=== PATIENT | female | born 1980 | race Caucasian/White ===

== ENCOUNTER 2016-07-03 11:19 | Emergency (ER) | payer OTHER | END 2016-07-03 13:18 | disposition left against medical advice (07) | LOC: UCCORT 11:19 | DX: R05 Cough (principal); Z53.29 Procedure and treatment not carried out because of patient's decision for other reasons ==

== ENCOUNTER 2016-07-04 10:51 | Emergency (ER) | payer OTHER ==
[2016-07-04 13:42] VITALS: BP 122/76
--- NOTE | 2016-07-17 17:28 | UC ---
Respiratory Complaint HPI - HPI Summary HPI Summary: Pt c/o generalized malaise, fatigue, productive cough, nasal congestion and increase in urination X 1 week. - History of Current Complaint Chief Complaint: UCGeneralIllness Stated Complaint: COUGH,SORE THROAT,CONGESTION Time Seen by Provider: 07/04/16 14:03 Hx Obtained From: Patient Hx Last Menstrual Period: 06/28/16 ?: No Onset/Duration: Gradual Onset, Lasting Days Timing: Constant Severity Initially: Mild Severity Currently: Mild Pain Intensity: 2 Pain Scale Used: 0-10 Numeric Character: Cough: Productive Aggravating Factors: Deep Breaths, Recumbent Position Associated Signs And Symptoms: Positive: Chills, URI, Nasal Congestion - Risk Factors Pulmonary Embolism Risk Factors: Negative - Allergies/Home Medications Allergies/Adverse Reactions: Allergies Allergy/AdvReac Type Severity Reaction Status Date / Time No Known Allergies Allergy Verified 07/04/16 13:38 PMH/Surg Hx/FS Hx/Imm Hx Previously Healthy: Yes Endocrine History Of: Denies: Diabetes Cardiovascular History Of: Denies: Hypertension, Pacemaker/ICD GI/ History Of: Denies: Renal Disease - Surgical History Surgical History: None Surgery Procedure, Year, and Place: Right Hip Periasatabularosteotomy, 2015, [place] - Family History Known Family History: Positive: Cardiac Disease - Social History Alcohol Use: None Substance Use Type: None Smoking Status (MU): Never Smoked Tobacco Type: Cigarettes - Immunization History Most Recent Influenza Vaccination: Not the Season Review of Systems Constitutional: Fever, Chills, Fatigue Skin: Negative Eyes: Negative ENT: Sore Throat, Ear Ache Respiratory: Cough Cardiovascular: Negative Gastrointestinal: Negative Genitourinary: Frequency Motor: Negative Neurovascular: Negative Musculoskeletal: Myalgia Neurological: Negative Psychological: Negative All Other Systems Reviewed And Are Negative: Yes Physical Exam Triage Information Reviewed: Yes Appearance: Ill-Appearing Vital Signs: Initial Vital Signs Temp 98.6 F 07/04/16 13:36 Pulse 70 07/04/16 13:36 Resp 16 07/04/16 13:36 BP 122/76 07/04/16 13:36 Pulse Ox 100 07/04/16 13:36 Vital Signs Reviewed: Yes ENT Exam: Other ENT: Positive: Nasal congestion Neck exam: Normal Respiratory Exam: Normal Cardiovascular Exam: Normal Musculoskeletal Exam: Normal Neurological Exam: Normal Psychological Exam: Normal Skin Exam: Normal UC Diagnostic Evaluation - Laboratory O2 Sat by Pulse Oximetry: 100 Respiratory Course/Dx - Differential Dx/Diagnosis Differential Diagnosis/HQI/PQRI: Bronchitis, Influenza, Sinusitis Provider Diagnoses: bronchitis Discharge - Discharge Plan Condition: Stable Disposition: HOME Prescriptions: Azithromycin TAB* [Zithromax TAB (Z-GRAHAM) 250 mg #6 tabs] 2 tab PO .TODAY, THEN 1 DAILY #1 graham Patient Education Materials: Acute Bronchitis (ED) Referrals: Miya Howe MD [Primary Care Provider] -
== END 2016-07-04 14:22 | disposition home or self-care (01) ==
LOC: UCCORT 10:51
DX: J40 Bronchitis, not specified as acute or chronic (principal)
CPT/HCPCS: 99212; G0463

== ENCOUNTER 2016-09-03 10:26 | Emergency (ER) | payer OTHER ==
[2016-09-03 10:42] VITALS: BP 140/92
--- NOTE | 2016-09-03 11:28 | UC ---
Complaint Female HPI - HPI Summary HPI Summary: She went to [facility]/18 for routine exam and mentioned vaginal discharge. She has been on clindmycin and flagyl. she has mild pelvic cramping intermittently and urinary frequency without hesitancy, burning or urgency . no flank pain, vomiting or fever. No prior STD and monogamous for 3 years. - History Of Current Complaint Chief Complaint: UCGU Stated Complaint: URINARY COMPLAINT Time Seen by Provider: 09/03/16 11:02 Hx Last Menstrual Period: 2 weeks ago ?: No Onset/Duration: Gradual Onset, Lasting Days Timing: Intermittent Severity Initially: Mild Severity Currently: Mild Character: Cramping Aggravating Factor(s): Nothing Associated Signs And Symptoms: Negative: Fever, Vaginal Bleeding/Discharge, Vaginal Discharge, Nausea, Vomiting(# Of Episodes =), Genital Swelling, Genital Blisters, Retained Foregin Body (Specify) - No pain with intercourse and no discharge currently. - Allergies/Home Medications Allergies/Adverse Reactions: Allergies Allergy/AdvReac Type Severity Reaction Status Date / Time No Known Allergies Allergy Verified 09/03/16 10:43 Home Medications: Home Medications metroNIDAZOLE TAB* [Flagyl 250 mg TAB*] 500 mg PO BID 09/03/16 [History Confirmed 09/03/16] PMH/Surg Hx/FS Hx/Imm Hx Endocrine History Of: Denies: Diabetes Cardiovascular History Of: Denies: Hypertension, Pacemaker/ICD GI/ History Of: Denies: Renal Disease - Surgical History Surgical History: Yes Surgery Procedure, Year, and Place: Right Hip Periasatabularosteotomy, 2015, [place] - Family History Known Family History: Positive: Cardiac Disease - Social History Alcohol Use: Rare Substance Use Type: None Smoking Status (MU): Never Smoked Tobacco Type: Cigarettes - Immunization History Most Recent Influenza Vaccination: Not the 2015/2016 Season Review of Systems All Other Systems Reviewed And Are Negative: Yes Physical Exam Triage Information Reviewed: Yes Appearance: Well-Appearing, No Pain Distress, Well-Nourished Vital Signs: Initial Vital Signs Temp 97.3 F 09/03/16 10:37 Pulse 100 09/03/16 10:37 Resp 14 09/03/16 10:37 BP 140/92 09/03/16 10:37 Pulse Ox 86 09/03/16 10:37 Vital Signs Reviewed: Yes Eye Exam: Normal Eyes: Positive: Conjunctiva Clear. Negative: Conjunctiva Inflamed ENT Exam: Normal ENT: Positive: Normal ENT inspection, Hearing grossly normal, Pharynx normal, TMs normal. Negative: Pharyngeal erythema, Nasal congestion, Nasal drainage, TM bulging, TM dull, TM red, Tonsillar swelling, Tonsillar exudate, Trismus, Muffled/hoarse voice Neck exam: Normal Neck: Positive: Supple, Nontender, No Lymphadenopathy. Negative: Nuchal Rigidity Respiratory Exam: Normal Respiratory: Positive: Chest non-tender, Lungs clear, Normal breath sounds, No respiratory distress, No accessory muscle use. Negative: Respiratory distress Cardiovascular Exam: Normal Cardiovascular: Positive: RRR, No Murmur, Pulses Normal Abdominal Exam: Normal Abdomen Description: Positive: Nontender, No Organomegaly, Soft Musculoskeletal: Positive: Strength Intact, ROM Intact, No Edema Neurological Exam: Normal Neurological: Positive: Alert, Muscle Tone Normal. Negative: Fatigued, Lethargic, Unresponsive, Abnormal Muscle Tone Psychological Exam: Normal Skin Exam: Normal Skin: Negative: rashes Complaint Female Dx - Differential Dx/Diagnosis Differential Diagnosis/HQI/PQRI: Appendicitis, Bartholin Cyst, Cervicitis, Ectopic, Endometriosis, Ovarian Cyst, Ovarian Torsion, Pelvic Inflammatory Disease, , Renal Colic, Retained Foreign Body, Sexually Transmitted Disease, Tubo-ovarian Abscess, Ureteral Stone, Urinary Tract Infection Provider Diagnoses: urinary frequency. Discharge - Discharge Plan Condition: Good Disposition: HOME Referrals: Miya Howe MD [Primary Care Provider] - Additional Instructions: REturn here for any worsening. call for the results of the urine culture in the next 1-2 days.
== END 2016-09-03 11:35 | disposition home or self-care (01) ==
LOC: UCCORT 10:26
DX: R35.0 Frequency of micturition (principal); Z32.02 Encounter for pregnancy test, result negative
CPT/HCPCS: 81003; 84702; 87086; 99212; G0463

== ENCOUNTER 2017-06-14 10:15 | Emergency (ER) | payer OTHER ==
[2017-06-14 11:49] VITALS: BP 105/63
--- NOTE | 2017-06-14 11:57 | UC ---
Throat Pain/Nasal Carlos HPI - HPI Summary HPI Summary: 36 y/o female presents to the urgent care c/o sinus congestion, pressure, WALL and pain for the past 2 weeks. Pt reports nasal discharge is green. she has Hx of recurrent sinusitis and she has seen Dr Rivera several times. Last time He told her she will probably need surgery. Pt has been using the hang pot to alleviate symptoms w/o any relief. Pt also state B/L ear pressure. Pt denies fever, SOB, chest pain, abdominal pain N/V/D, decrease hearing, dizziness. - History of Current Complaint Chief Complaint: UCGeneralIllness Stated Complaint: SINUS EARS CHEST CONGESTION Time Seen by Provider: 06/14/17 11:54 Hx Obtained From: Patient Hx Last Menstrual Period: 06/07/17 Onset/Duration: Gradual Onset, Lasting Weeks - 2 weeks, Still Present, Worse Since - 3 days Severity: Moderate Pain Intensity: 5 Pain Scale Used: 0-10 Numeric Cough: Nonproductive Associated Signs & Symptoms: Positive: Sinus Discomfort, Nasal Discharge - Epiglottits Risk Factors Epiglottis Risk Factors: Negative - Allergies/Home Medications Allergies/Adverse Reactions: Allergies Allergy/AdvReac Type Severity Reaction Status Date / Time No Known Allergies Allergy Verified 06/14/17 11:49 PMH/Surg Hx/FS Hx/Imm Hx Previously Healthy: Yes - Pt denies PMHX - Surgical History Surgical History: Yes Surgery Procedure, Year, and Place: Right Hip Periasatabularosteotomy, 2015, [place] - Family History Known Family History: Positive: Cardiac Disease, Hypertension - Social History Occupation: Employed Full-time Lives: With Family Alcohol Use: None Substance Use Type: None Smoking Status (MU): Never Smoked Tobacco Type: Cigarettes - Immunization History Most Recent Influenza Vaccination: Not the Season Review of Systems Skin: Negative Eyes: Negative ENT: Ear Ache - B/L ear pressure, Nasal Discharge, Sinus Congestion, Sinus Pain/ Tenderness, Other - PND Respiratory: Negative Cardiovascular: Negative Gastrointestinal: Negative Genitourinary: Negative Motor: Negative Neurovascular: Negative Musculoskeletal: Negative Neurological: Headache Psychological: Negative Is Patient Immunocompromised?: No All Other Systems Reviewed And Are Negative: Yes Physical Exam Triage Information Reviewed: Yes Vital Signs: Initial Vital Signs Temp 98.8 F 06/14/17 11:43 Pulse 62 06/14/17 11:43 Resp 16 06/14/17 11:43 BP 105/63 06/14/17 11:43 Pulse Ox 100 06/14/17 11:43 - Additional Comments Vitals: reviewed General: Well developed, well-nourished female patient with NAD. Head and face: Normocephalic and atraumatic, Positive tenderness over the frontal and maxillary sinuses.. Eyes: PERRLA, EOMI x 2. Normal conjunctiva. No eye discharge. ENT: Ears and TM with normal limits. Nose: with yellowish discharge and erythematous mucosa. Pharynx with erythema, no exudate. Neck: Supple, no JVD, no carotid bruits and no lymphadenopathy. Lungs: clear, no rales, no rhonchi, no wheezes. CVS: RRR, S1 and S2 present no murmurs or gallops appreciated. Abdomen: soft nontender with positive bowel sounds. Extremities: no edema noted. Neuro: WNL. Skin: warm and dry Throat Pain/Nasal Course/Dx - Course Course Of Treatment: 36 y/o female presents to the urgent care c/o sinus congestion, pressure, WALL and pain for the past 2 weeks. Pt reports nasal discharge is green. she has Hx of recurrent sinusitis and she has seen Dr Rivera several times. Last time He told her she will probably need surgery. Pt has been using the hang pot to alleviate symptoms w/o any relief. Pt also state B/L ear pressure. Pt denies fever, SOB, chest pain, abdominal pain N/V/D , decrease hearing, dizziness. Hx obtained. Pt with 2 weeks of symptoms getting worse. Pt Rx Amoxicillin PO and flonase nasal spray. Discharge instructions explained to Pt. Advised to Return to the clinic or PCP if symptoms do not improve.Pt understood and agreed with plan of care. - Differential Dx/Diagnosis Differential Diagnosis/HQI/PQRI: Influenza, Laryngitis, Pharyngitis, Sinusitis, Tonsillitis, URI Provider Diagnoses: 1- Acute bacterial sinusitis Discharge - Discharge Plan Condition: Stable Disposition: HOME Prescriptions: Amoxicillin/Clavulanate TAB* [Augmentin TAB 875*] 875 mg PO BID #20 tab Fluticasone NASAL SPRAY 50MCG* [Flonase NASAL SPRAY 50MCG*] 2 spray BOTH NARES DAILY #1 btl Patient Education Materials: Sinusitis (ED) Referrals: Miya Howe MD [Primary Care Provider] - 1 Week Brendan Rivera MD [Medical Doctor] - If Needed Additional Instructions: 1- Please increase fluid intake and rest. take full course of antibiotic to avoid resistance 2-Use Flonase as directed to help drain fluid. Also buy saline drops to clear sinuses. Use a humidifier at night time 3-Take Sudafed or Claritin PO to alleviates sinus congestion 4-Return to the clinic or PCP if symptoms do not improve for further management and treatment
== END 2017-06-14 12:21 | disposition home or self-care (01) ==
LOC: UCCORT 10:15
DX: J01.90 Acute sinusitis, unspecified (principal); H93.8X3 Other specified disorders of ear, bilateral
CPT/HCPCS: 99212; G0463

== ENCOUNTER 2017-10-14 19:21 | Emergency (ER) | payer OTHER ==
[2017-10-14 19:37] VITALS: BP 113/66
[2017-10-14] MEDS ORDERED: Sulfamethox/Trimethoprim DS 800/160* TAB PO ONE (19:56)
--- NOTE | 2017-10-14 20:04 | ED ---
GI/ HPI - HPI Summary HPI Summary: 37 yr old female with the complaint of dysuria, frequency, and mild low back pain. She feels she has a UTI as she has had them before. - History of Current Complaint Chief Complaint: UCGU Time Seen by Provider: 10/14/17 19:39 Stated Complaint: UTI Hx Last Menstrual Period: 10/04/17 Pain Intensity: 0 - Allergy/Home Medications Allergies/Adverse Reactions: Allergies Allergy/AdvReac Type Severity Reaction Status Date / Time No Known Allergies Allergy Verified 10/14/17 19:37 PMH/Surg Hx/FS Hx/Imm Hx Endocrine/Hematology History: Denies: Hx Diabetes Cardiovascular History: Denies: Hx Hypertension, Hx Pacemaker/ICD History: Denies: Hx Renal Disease Sensory History: Denies: Hx Hearing Aid Psychiatric History: Denies: Hx Panic Disorder - Surgical History Surgery Procedure, Year, and Place: Right Hip Periasatabularosteotomy, 2015, [place]. left hip periasataabularosteotomy 06/2017 [place] Infectious Disease History: No Infectious Disease History: Denies: Hx Clostridium Difficile, Hx Hepatitis, Hx Human Immunodeficiency Virus (HIV), Hx of Known/Suspected MRSA, Hx Shingles, Hx Tuberculosis, Hx Known/ Suspected VRE, Hx Known/Suspected VRSA, History Other Infectious Disease, Traveled Outside the [place] in Last 30 Days - Family History Known Family History: Positive: Cardiac Disease, Hypertension - Social History Alcohol Use: Occasionally Substance Use Type: Reports: None Smoking Status (MU): Never Smoked Tobacco Type: Cigarettes Review of Systems Positive: burning, dysuria All Other Systems Reviewed And Are Negative: Yes Physical Exam Triage Information Reviewed: Yes Vital Signs On Initial Exam: Initial Vitals Temp Pulse Resp BP Pulse Ox 97.6 F 65 16 113/66 100 10/14/17 19:33 10/14/17 19:33 10/14/17 19:33 10/14/17 19:33 10/14/17 19:33 Vital Signs Reviewed: Yes Appearance: Positive: Well-Appearing, No Pain Distress Skin: Positive: Warm, Skin Color Reflects Adequate Perfusion Head/Face: Positive: Normal Head/Face Inspection Eyes: Positive: EOMI ENT: Positive: Normal ENT inspection Neck: Positive: Nontender Respiratory/Lung Sounds: Positive: Clear to Auscultation, Breath Sounds Present Cardiovascular: Positive: RRR. Negative: Murmur Abdomen Description: Positive: Nontender. Negative: CVA Tenderness (R), CVA Tenderness (L) Musculoskeletal: Positive: Other - she has crutches Neurological: Positive: Alert, Oriented to Person Place, Time, CN Intact II-III , Speech Normal Psychiatric: Positive: Normal - Ramila Coma Scale Best Eye Response: 4 - Spontaneous Best Motor Response: 6 - Obeys Commands Best Verbal Response: 5 - Oriented Coma Scale Total: 15 Diagnostics - Vital Signs Vital Signs Temp Pulse Resp BP Pulse Ox 10/14/17 19:33 97.6 F 65 16 113/66 100 - Laboratory Lab Results: Lab Results 10/14/17 10/14/17 Range/Units 19:43 19:48 POC Urine Color Yellow POC Urine Clarity Clear POC Urine pH 6.0 (5-9) POC Ur Specif Flora <= 1.005 L (1.010-1.030) POC Urine Protein Negative (Negative) POC Ur Glucose (UA) Negative (Negative) POC Urine Ketones Negative (Negative) POC Urine Blood 2+ A (Negative) POC Urine Nitrite Negative (Negative) POC Urine Bilirubin Negative (Negative) POC Urine Urobilinogen 0.2 (Negative) POC U Leukocyte Esteras 2+ A (Negative) POC Ur Test Negative (Negative) Lab Statement: Any lab studies that have been ordered have been reviewed, and results considered in the medical decision making process. GIGU Course/Dx - Course Course Of Treatment: 37 yr old with UTI. Rx with bactrim DS. DC home. - Diagnoses Provider Diagnoses: UTI (urinary tract infection) Discharge - Sign-Out/Discharge Documenting (check all that apply): Discharge/Admit/Transfer - Discharge Plan Condition: Good Disposition: HOME Prescriptions: Sulfamethox/Trimethoprim DS* [Bactrim DS 800/160 TAB*] 1 tab PO BID #10 tab Patient Education Materials: Urinary Tract Infection in Women (ED) Referrals: Miya Howe MD [Primary Care Provider] - - Billing Disposition and Condition Condition: GOOD Disposition: HOME
--- NOTE | 2017-10-17 07:13 | UC ---
- Progress Note Progress Note: notify pt no UTI stop antibiotic recheck if not better Course/Dx - Diagnoses Provider Diagnoses: UTI (urinary tract infection) Discharge - Sign-Out/Discharge Documenting (check all that apply): Post-Discharge Follow Up - Discharge Plan Condition: Good Disposition: HOME Prescriptions: Sulfamethox/Trimethoprim DS* [Bactrim DS 800/160 TAB*] 1 tab PO BID #10 tab Patient Education Materials: Urinary Tract Infection in Women (ED) Referrals: Miya Howe MD [Primary Care Provider] - - Billing Disposition and Condition Condition: GOOD Disposition: HOME
== END 2017-10-14 20:05 | disposition home or self-care (01) ==
LOC: UCCORT 19:21
DX: N39.0 Urinary tract infection, site not specified (principal)
CPT/HCPCS: 81003; 84702; 87086; 99212; A9270-GY; G0463

== ENCOUNTER 2017-10-28 15:41 | Emergency (ER) | payer OTHER ==
[2017-10-28 16:59] VITALS: BP 102/60
--- NOTE | 2017-10-28 17:02 | UC ---
Skin Complaint HPI - HPI Summary HPI Summary: Per computer installer "Small circular red area on inside of right thigh, noticed yesterday. Concerned it is from a tick bite, did not remove a tick. " her fiance had found 1 or 2 tics on him after working in their yard earlier this week. she was outside in the yard with him. denies any fevers, chills, joint or body aches. 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 but no new pains. -has implenon and denies chance of . LMP 10/05/17. - History of Current Complaint Chief Complaint: UCSkin Time Seen by Provider: 10/28/17 17:00 Stated Complaint: SKIN COMPLAINT Hx Last Menstrual Period: 10/05/17 Pain Intensity: 0 - Allergy/Home Medications Allergies/Adverse Reactions: Allergies Allergy/AdvReac Type Severity Reaction Status Date / Time No Known Allergies Allergy Verified 10/28/17 16:57 Review of Systems Constitutional: Negative Skin: Rash Eyes: Negative ENT: Negative Respiratory: Negative Cardiovascular: Negative Gastrointestinal: Negative Genitourinary: Negative Motor: Negative Neurovascular: Negative Musculoskeletal: Negative Neurological: Negative Psychological: Negative Is Patient Immunocompromised?: No All Other Systems Reviewed And Are Negative: Yes PMH/Surg Hx/FS Hx/Imm Hx Previously Healthy: Yes - Surgical History Surgical History: Yes Surgery Procedure, Year, and Place: Right Hip Periasatabularosteotomy, . left hip periasataabularosteotomy 06/2017 [place] - Family History Known Family History: Positive: Cardiac Disease, Hypertension - Social History Alcohol Use: Occasionally Substance Use Type: None Smoking Status (MU): Never Smoked Tobacco Type: Cigarettes - Immunization History Most Recent Influenza Vaccination: Not the Season Physical Exam Triage Information Reviewed: Yes Appearance: Well-Appearing, No Pain Distress, Well-Nourished - ambulates w/ cane Vital Signs: Initial Vital Signs Temp 98 F 10/28/17 16:55 Pulse 63 10/28/17 16:55 Resp 15 10/28/17 16:55 BP 102/60 10/28/17 16:55 Pulse Ox 100 10/28/17 16:55 Eye Exam: Normal ENT Exam: Normal Neck exam: Normal Respiratory Exam: Normal Respiratory: Positive: Normal breath sounds, No respiratory distress, No accessory muscle use Cardiovascular Exam: Normal Cardiovascular: Positive: RRR Abdomen Description: Positive: Nontender, Soft Musculoskeletal Exam: Normal Neurological Exam: Normal Psychological Exam: Normal Skin: Positive: rashes - right upper inner thigh w/ quarter sized round erythematous area w/ central small break in skin. no evidnece of tic seen. no necrosis. no streaks, no d/c. Course/Dx - Course Course Of Treatment: presumed tic bite d/t history. spent quite some time reviewing guidelines of tic bites. no sx. recommend treat w/ prophylactic dose of doxy 200mgs x 1. I answered her questions to the best of my ability. She is agreeable w/ this plan. Avoid sun exposure over next 1-2 days d/t increased risk of sun burn. - Differential Diagnoses - Skin Complaint Differential Diagnoses: Cellulitis, Contact Dermatitis, Tick Born Illness - Diagnoses Provider Diagnoses: tic bite Discharge - Sign-Out/Discharge Documenting (check all that apply): Discharge/Admit/Transfer - Discharge Plan Condition: Stable Disposition: HOME Prescriptions: DOXYcycline CAP(*) [DOXYcycline 100MG CAP(*)] 200 mg PO DAILY #2 cap Patient Education Materials: Tick Bite (ED) Referrals: Miya Howe MD [Primary Care Provider] - Additional Instructions: -I suspect that you may have had a tic bite. We discussed the treatment guidelines and you are getting a prophylactic dose of antibiotics to help prevent lyme disease. You should be seen if you develop fevers, chills or joint aches. - Billing Disposition and Condition Condition: STABLE Disposition: HOME
== END 2017-10-28 17:18 | disposition home or self-care (01) ==
LOC: UCCORT 15:41
DX: S70.361A Insect bite (nonvenomous), right thigh, initial encounter (principal); W57.XXXA Bitten or stung by nonvenomous insect and other nonvenomous arthropods, initial encounter; Y93.H2 Activity, gardening and landscaping; Y92.9 Unspecified place or not applicable
CPT/HCPCS: 99212; G0463

== ENCOUNTER 2019-05-19 17:11 | Emergency (ER) | payer BC, OTHER ==
[2019-05-19 17:25] VITALS: BP 95/56
--- NOTE | 2019-05-19 17:52 | UC ---
Complaint Female HPI - HPI Summary HPI Summary: 38-year-old female who is approximately 15 weeks gestation having undergone in vitro fertilization. She has had several sonograms with Dr. Cochran because of the in vitro fertilization which showed an intrauterine . Her last appointment was about one month ago at which she had some discharge which she thought she might have BV however was told that it did not need to be treated at this point time. Today she has mild vaginal itching and stated she had a strong odor so she thought she may have BV again. She denies any cramping, no bleeding. She did had intercourse last night. - History Of Current Complaint Chief Complaint: UCGeneralIllness Stated Complaint: PERSONAL 15 WKS Time Seen by Provider: 05/19/19 17:16 Hx Obtained From: Patient Hx Last Menstrual Period: 10/05/17 ?: No Onset/Duration: Gradual Onset, Lasting Weeks Timing: Intermittent Severity Initially: Mild Severity Currently: Mild Pain Intensity: 0 Character: Not Applicable Aggravating Factor(s): Nothing Alleviating Factor(s): Nothing Associated Signs And Symptoms: Positive: Vaginal Bleeding/Discharge - Mild vaginal discharge which she thinks might be BV - Allergies/Home Medications Allergies/Adverse Reactions: Allergies Allergy/AdvReac Type Severity Reaction Status Date / Time No Known Allergies Allergy Verified 05/19/19 17:22 Home Medications: Home Medications Levothyroxine TAB* [Synthroid TAB*] 1 dose PO DAILY 05/19/19 [History Confirmed 05/19/19] Pnv No.95/Ferrous Fum/Folic AC [ Vitamin & Minera 28-0.8 mg] 1 tab PO DAILY 05/19/19 [History Confirmed 05/19/19] PMH/Surg Hx/FS Hx/Imm Hx Previously Healthy: No - Surgical History Surgical History: Yes Surgery Procedure, Year, and Place: Right Hip Periasatabularosteotomy, 2015, . left hip periasataabularosteotomy 06/[place] - Family History Known Family History: Positive: Cardiac Disease, Hypertension - Social History Alcohol Use: None Substance Use Type: None Smoking Status (MU): Never Smoked Tobacco Type: Cigarettes - Immunization History Most Recent Influenza Vaccination: Not the 2016/2016 Season Review of Systems All Other Systems Reviewed And Are Negative: Yes Genitourinary: Positive: Vaginal/Penile Itching - Mild vaginal itching with some odor which suggest BV according to the patient Is Patient Immunocompromised?: No Physical Exam Triage Information Reviewed: Yes Appearance: Well-Appearing, No Pain Distress, Well-Nourished Vital Signs: Initial Vital Signs Temp 99.0 F 05/19/19 17:22 Pulse 63 05/19/19 17:22 Resp 14 05/19/19 17:22 BP 95/56 05/19/19 17:22 Pulse Ox 100 05/19/19 17:22 Vital Signs Reviewed: Yes Eyes: Positive: Conjunctiva Clear Respiratory: Positive: Lungs clear, Normal breath sounds, No respiratory distress, No accessory muscle use Cardiovascular: Positive: RRR, No Murmur, Pulses Normal, Brisk Capillary Refill Abdomen Description: Positive: Nontender, No Organomegaly, Soft, Other: - The uterine fundus is approximately 5 fingers below the umbilicus.. Negative: CVA Tenderness (R), CVA Tenderness (L), Distended, Guarding, Hepatomegaly, McBurney' s Point Tenderness, Splenomegaly Bowel Sounds: Positive: Present Pelvic Exam: Positive: Other - The area around the labia and vaginal opening is normal pink with no erythema and no active discharge at this point time. An AFFIRM swab was obtained Neurological Exam: Normal Psychological Exam: Normal Complaint Female Dx - Course Course Of Treatment: At this point time the patient would prefer to wait for the results of the AFFIRM swab. - Differential Dx/Diagnosis Provider Diagnosis: Vaginal discharge Discharge ED - Sign-Out/Discharge Documenting (check all that apply): Patient Departure All imaging exams completed and their final reports reviewed: No Studies - Discharge Plan Condition: Good Disposition: HOME Patient Education Materials: Bacterial Vaginosis (ED) Referrals: Josue Cochran MD [Medical Doctor] - Raquel Mccormack PA [Primary Care Provider] - Additional Instructions: We will call you with the results of the culture if it comes back positive. If you want to know for sure, you can call here on Tuesday. Follow up with Dr. Cochran if any worsening symptoms. - Billing Disposition and Condition Condition: GOOD Disposition: Home
--- NOTE | 2019-05-21 07:28 | ED ---
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 A prescription for Clindamycin 300 mg PO BID for a week has been sent in. Please be sure she follows up with her [employer] in the next week for reevaluation and to be sure this has resolved. Course/Dx - Diagnoses Provider Diagnoses: Vaginal discharge Discharge ED - Sign-Out/Discharge Documenting (check all that apply): Patient Departure All imaging exams completed and their final reports reviewed: No Studies - Discharge Plan Condition: Good Disposition: HOME Prescriptions: Clindamycin Cap(NF) [Clindamycin Cap 300 mg Cap(NF)] 300 mg PO BID #14 cap Patient Education Materials: Bacterial Vaginosis (ED) Referrals: Josue Cochran MD [Medical Doctor] - Raquel Mccormack PA [Primary Care Provider] - Additional Instructions: We will call you with the results of the culture if it comes back positive. If you want to know for sure, you can call here on Tuesday. Follow up with Dr. Cochran if any worsening symptoms. - Billing Disposition and Condition Condition: GOOD Disposition: Home
== END 2019-05-19 18:12 | disposition home or self-care (01) ==
LOC: UCCORT 17:11
DX: O99.89 Other specified diseases and conditions complicating pregnancy, childbirth and the puerperium (principal); N89.8 Other specified noninflammatory disorders of vagina; Z3A.15 15 weeks gestation of pregnancy
CPT/HCPCS: 87480; 87510; 87660; 99211; G0463

== ENCOUNTER 2021-09-18 08:11 | Inpatient (IN) ==
[2021-09-18] MEDS ORDERED: Buffered Lidocaine 1% SYRIN 1 ml INTRADERM ONE (08:59)
[2021-09-18] MEDS ORDERED: Lactated Ringers 1000 ml BAG 1,000 ML IV ONE (08:59)
[2021-09-18] MEDS ORDERED: Penicillin G Potassium IV 5,000,000 UNITS in NS 0.9% 100 ml BAG 100 ML IVPB ONE (09:30)
[2021-09-18 10:31] LABS: Urine Benzodiazepine Screen None Detected (None Detect); Urine Cannabinoids Screen None Detected (None Detect); Urine Opiates Screen None Detected (None Detect)
[2021-09-18 14:16] LABS: ABS Lymphocytes 1.1 10^3/ul (1.0-4.8); ABS Monocytes 0.4 10^3/ul (0-0.8); ABS Neutrophils 4.9 10^3/ul (1.5-7.7); Eosinophil % 0.6 %; Hematocrit 34 % (35-47); Hemoglobin 11.9 g/dL (12.0-16.0); Lymphocyte % 16.9 %; Mean Corpuscular HGB Conc 36 g/dL (31-36); Mean Corpuscular Hemoglobin 35 pg (27-31); Mean Corpuscular Volume 98 fL (80-97); Platelet Count 193 10^3/uL (150-450); Red Blood Count 3.43 10^6 /uL (3.70-4.87); Red Cell Distribution Width 13 % (10-15); White Blood Count 6.4 10^3/uL (3.5-10.8)
[2021-09-18] MEDS: Penicillin G Potassium IV 3,000,000 UNITS in NS 0.9% 100 ml BAG 100 ML IVPB SCH ×2 (18:20→22:17)
[2021-09-18] MEDS ORDERED: Lidocaine 1.5% EPI 1:200,000 30 ML SDV ONE (22:30)
[2021-09-18] MEDS ORDERED: Oxytocin in LR 20 UNITS/1,000 ML BAG IVPB ONE (22:36)
[2021-09-18] MEDS ORDERED: Lactated Ringers 1000 ml BAG 1,000 ML IV SCH (23:45)
[2021-09-18] MEDS ORDERED: Oxytocin in LR 20 UNITS/1,000 ML BAG IVPB SCH (23:45)
[2021-09-18] MEDS ORDERED: Witch Hazel PAD JAR TOPICAL PRN (23:48)
[2021-09-18] MEDS ORDERED: Dibucaine 1% OINT 28.35 GM TUBE PR PRN (23:48)
[2021-09-19] MEDS ORDERED: Lidocaine 1% VIAL 10 MG/ML VIAL ONE (01:52)
[2021-09-19 06:24] LABS: ABS Monocytes 0.5 10^3/ul (0-0.8); Eosinophil % 0.1 %; Hematocrit 31 % (35-47); Lymphocyte % 8.7 %; Mean Corpuscular HGB Conc 36 g/dL (31-36); Mean Corpuscular Hemoglobin 34 pg (27-31); Mean Corpuscular Volume 96 fL (80-97); Mean Platelet Volume 6.6 fL (7.4-10.4); Platelet Count 198 10^3/uL (150-450); Red Blood Count 3.22 10^6 /uL (3.70-4.87); Red Cell Distribution Width 13 % (10-15); White Blood Count 11.5 10^3/uL (3.5-10.8)
[2021-09-20 08:16] VITALS: BP 107/62
== END 2021-09-20 18:48 | disposition home or self-care (01) | DRG 560 ==
LOC: MCHOBOUT 08:11 → MCHOB 08:40
PROVIDERS: ADMIT Advanced Practice Midwife; ATTEND Advanced Practice Midwife